=== PATIENT | female | born 1960 | race Caucasian/White ===

== ENCOUNTER 2016-09-02 06:26 | Inpatient (IN) | payer OTHER ==
[~2016-09-02] VITALS: Ht 160 cm; Wt 111.0 kg
--- NOTE | 2016-09-05 09:57 | HP ---
ADMIT: 09/02/2016 RM/LOC: 509 [facility] MR#: [id number] [address] [address] MARLYNMELANI FUENTES [address] [place] [address] History and Physical SEX: F AGE: 56 : 1960 DATE OF SERVICE: CHIEF COMPLAINT: Severe upper abdominal pain with nausea. CLINICAL HISTORY: The patient is a morbidly obese 56-year-old white female, admitted to [facility] after presenting to the emergency room on the morning of 09/02/2016, complaining of severe upper abdominal pain with nausea. The patient had, had the onset of pain late on the afternoon or early evening of , 09/01/2016. The pain persisted overnight and became much more intense. She notes that she was unable to sleep through most of the night because of the severe pain and nausea. She has been unable to eat or drink anything. She notes that she has had no vomiting, no melena, or hematemesis. She has not been having any recent dyspepsia or indigestion. She has had a previous cholecystectomy in 1998. The pain progressively got worse to the point that she could not deal with it anymore and for that reason, her brought her to the emergency room on the morning of 09/02/2016. She was evaluated in the ER by Dr. Ren, who did obtain a CT of her abdomen which showed acute inflammatory changes in the head of the pancreas, changes consistent with acute pancreatitis. This was consistent with her pancreatic enzymes being elevated with her lipase being at 739, when seen in the ER. She has no prior history of pancreatitis. As noted, she has had a previous cholecystectomy. She does not consume alcoholic beverages. She does have a history of hyperlipidemia and type 2 diabetes, and it is suspected that her hyperlipidemia is the primary cause of her acute pancreatitis, is admitted at this time for pain control and IV fluid rehydration. She was given morphine in the ER, which settled her pain down. She was also given Zofran in the ER, which helped for her nausea, but as noted, admitted for pain control and rehydration. PAST MEDICAL HISTORY: Recent Hospitalizations: She was last hospitalized at 1998, had a laparoscopic cholecystectomy at that time. She was hospitalized in 1991, in [place] for a lumbar laminectomy. She has had a previous tubal ligation following the of her last child. Other than for childbirth and these prior surgical procedures, she has had no other previous hospitalizations. PAST SURGICAL HISTORY: Operations as noted included laparoscopic cholecystectomy, lumbar laminectomy, and tubal ligation. CURRENT MEDICATIONS: Include. 1. Metformin 500 mg two tablets b.i.d. 2. Invokana 300 mg daily. 3. Dapu-jzu-kxpzpts Aleve p.r.n. pain. ALLERGIES: NONE KNOWN. MEDICAL ILLNESSES: Her medical illnesses include: 1. Type 2 diabetes. 2. Hyperlipidemia/hypertriglyceridemia. ADMIT: 09/02/2016 RM/LOC: 509 [facility] MR#: [id number] [address] [place] [id number] MELANI CLINE [address] [place] [address] History and Physical SEX: F AGE: 56 : 1960 3. Metabolic syndrome. 4. Morbid obesity. 5. Degenerative disk disease of lumbar spine with chronic low back pain. SOCIAL HISTORY: The patient is . She lives with her in the family home. She is a nonsmoker. She does not consume alcoholic beverages. She has no history of illicit drug use. 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 FAMILY HISTORY: Family history is negative. There is a strong history of diabetes in her family, but no other significant family history reported. REVIEW OF SYSTEMS: CONSTITUTIONAL: She has had no fever, no chills, has been feeling well up until the onset of the pain on the early evening of 09/01/2016. HEENT: No recent vision changes. No upper respiratory congestion. No problem swallowing. PULMONARY: No shortness of breath. No cough. She does note she fatigues easily due to her obesity and deconditioning. The patient does not exercise regularly. CARDIAC: No chest pain. No palpitations. No known coronary artery disease. Multiple cardiac risk factors including obesity, sedentary lifestyle, hyperlipidemia, and type 2 diabetes. GASTROINTESTINAL: As noted in the HPI, severe pain and nausea, but no vomiting, no melena or hematemesis, does not usually have much trouble with heartburn or indigestion, has had no recent change in bowel habitus. Last bowel movement was on 09/01/2016. GENITOURINARY: No voiding symptoms. The patient is postmenopausal. MUSCULOSKELETAL: History of degenerative disk disease, chronic low back pain. No other significant bone or joint pain. NEUROLOGIC: No history of strokes, seizures, or TIAs. No history of neuropathy. No unusual headaches. No lightheadedness, dizziness, or syncope. ENDOCRINE: She is a type 2 diabetic, does not monitor her sugars closely, has not been adhering to her diabetic diet. PHYSICAL EXAMINATION: VITAL SIGNS: On admission, temperature is a 100, pulse 88, respirations 18, blood pressure 130/85, O2 saturation 93%. GENERAL: The patient is a morbidly obese 56-year-old female, who appears her stated age. She is in no acute distress. She is oriented x3. HEENT: Unremarkable. Ears clear. Nose and throat noninflamed. Oropharynx normal. Pupils are equal and reactive. Sclerae nonicteric. Conjunctivae noninflamed. NECK: Supple. Thyroid not enlarged. No cervical adenopathy. No neck vein distention. Her neck is quite short, thick, and obese. LUNGS: Today are noted to be clear. She is diminished in the bases. HEART: Has a regular rhythm. No murmurs. No lifts, thrills, or heaves. BREASTS: Were not examined. ABDOMEN: Tender. She is quite tender in the epigastrium and upper abdomen. ADMIT: 09/02/2016 RM/LOC: 509 [facility] MR#: [id number] [facility] [id number] [address] [address] MELANI CLINE[address] [place] [address] History and Physical SEX: F AGE: 56 : 1960 Bowel sounds are normoactive. She does have a small umbilical hernia. Abdominal exam is somewhat limited by her abdominal obesity, but I see no guarding or rigidity. No peritoneal signs. Bowel sounds are present, but are hypoactive. PELVIC: Not performed. EXTREMITIES: Normal to gross exam. She does have 1+ pedal and ankle edema, some obesity related lymphedema of the lower extremities. No calf tenderness. No signs of thrombophlebitis. NEUROLOGICAL: She is intact with no focal deficit. Her balance is normal. Gait is normal. No evidence of diabetic neuropathy. Sensation is intact. INTEGUMENT: No rashes or skin breakdown. No diabetic foot or leg ulcerations. LABORATORY DATA: Her pre-admission laboratory work included [place] [address], hemoglobin 16.2, hematocrit 44.6. Her sodium is 131, potassium is elevated at 6.3. Her blood sugar was noted to be 279. Her procalcitonin is normal at 0.08, hemoglobin A1c is elevated at 7.6, lipase is 739, cholesterol is elevated at 373, triglycerides are 3768. IMAGING: Chest x-ray showed no acute infiltrates. Lung jung were clear. EKG is unremarkable with sinus tachycardia. CT scan of the abdomen showed significant changes of acute pancreatitis. ADMITTING DIAGNOSES: 1. Severe upper abdominal/epigastric abdominal pain. 2. Acute pancreatitis. 3. Morbid obesity. 4. Type 2 diabetes with history of poor control. 5. Hyperlipidemia. 6. Hyperkalemia. 7. Degenerative disk disease of the lumbosacral spine. 8. Chronic low back pain. It is my impression on admission that causes of her acute pancreatitis is her hypertriglyceridemia. PLAN: Plan is to admit the patient. Place her at bowel rest. Rehydrate with IV fluids. We will give a 2 L of fluid bolus. 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 We will place her on sliding scale insulin for management of her diabetes at this time. Leopoldo Amador MD/ carlyn JOB #: [id number] CC: Leopoldo Amador, Attending Physician Leopoldo Amador, Family Physician
[2016-09-07] MEDS ORDERED: GLUCOPHAGE-DPS500 MG PO (10:20)
[2016-09-07] MEDS ORDERED: INVOKANA300 MG PO (10:20)
[2016-09-07] MEDS ORDERED: MAALOX DPS30 ML PO (10:21)
[2016-09-07] MEDS ORDERED: CRESTOR20 MG PO (10:21)
[2016-09-07] MEDS ORDERED: MICRO-K DPS10 MEQ PO (10:21)
[2016-09-07] MEDS ORDERED: TYLENOL DPS325 MG PO (10:21)
[2016-09-07] MEDS ORDERED: PROTONIX40 MG PO (10:21)
[2016-09-07] MEDS ORDERED: TRICOR145 MG PO (10:22)
[2016-09-07] MEDS ORDERED: BACTRIM DS DPS1 TAB PO (10:22)
--- NOTE | 2016-09-09 18:56 | ER ---
ADMIT: 09/02/2016 RM/LOC: 509 [facility] MR#: [id number] [address] [address] MELANI CLINE [address] [place] [address] Emergency Room Report SEX: F AGE: 56 : 1960 DATE: 09/02/2016 ADDENDUM: A 56-year-old white female coming in with abdominal pain. She is diabetic, obese. She has hyperlipidemia. Chemistry machines went down while she was here; however, the CT did show pancreatitis and clinically, she acts that way as well. I spoke with Dr. Amador, he will admit and write orders. Issac Ren MD/ carlyn JOB #: [id number] CC: Leopoldo Amador MD, Attending Physician Leopoldo Amador MD, Family Physician
--- NOTE | 2016-10-12 13:37 | DS ---
ADMIT: 09/02/2016 RM/LOC: 509 [facility] MR#: [id number] [address] [address] MELANI CLINE [address] [place] [address] General Discharge Summary SEX: F AGE: 56 : 1960 ADMISSION DATE: 09/02/2016 DISCHARGE DATE: 09/06/2016 ADMITTING DIAGNOSIS: As per history and physical. FINAL DIAGNOSES: 1. Acute pancreatitis secondary to hypertriglyceridemia. 2. Morbid obesity. 3. Type 2 diabetes with hyperglycemia. 4. Urinary tract infection. 5. Degenerative disk disease of the lumbosacral spine. 6. Hyperkalemia. 7. Umbilical hernia. 8. Hyperlipidemia/hypertriglyceridemia. COMPLICATIONS: None. OPERATIONS: None. CLINICAL HISTORY: Mrs. Cline is a morbidly obese 56-year-old white female admitted to [facility] after presenting to the emergency room early on the morning of 09/02/2016. The patient was complaining of severe epigastric abdominal pain with nausea and vomiting. She has had the onset of abdominal pain the previous day. She had been awake most of the night because of her severe pain and nausea. She was unable to tolerate the pain any longer and presented to the ER on the morning of 09/02/2016. When seen in the ER, her CT of her abdomen showed changes of acute pancreatitis, and she had obvious pancreatitis by pancreatic enzyme assay. The patient was admitted with severe abdominal pain due to acute pancreatitis. She also on admission was noted to have dehydration and severe hyperglycemia. For further details of her clinical history as well as past medical history and pertinent findings on physical exam, please see dictated history and physical. LABORATORY AND X-RAY SUMMARY FROM THIS ADMISSION: For complete details of the lab, please see cumulative laboratory summary included in the chart. Brief synopsis of lab; her initial CBC showed a white count of 13,700, hemoglobin on admission was 16.2, and hematocrit 44.6. On her second hospital day, white count was 14,700 and hemoglobin 14.7. CBCs were monitored daily, and at discharge, her white count was 11,800, hemoglobin 14, and hematocrit 41.4. On admission, her urinalysis showed negative nitrites, trace of leukocyte esterase, and 5 wbc's per high-power field. UA on 09/06/2016 showed 3+ leukocyte esterase, 30 wbc's per high-power field, and changes consistent with a urinary tract infection. Chemistry studies were monitored serially because of her dehydration and hyperkalemia on admission. On admission, her sodium was 131 and potassium was 6.3. Her BUN was 12 with a creatinine at 0.5. Her blood sugar on admission was 279. On admission, her lipase was elevated at 739. Her albumin was low at 2.9. LFTs were normal except for elevation of her AST at 103. On her second hospital day, lipase was already coming back down, sodium was 140, potassium 3.6, BUN was 8 with a creatinine of 0.5. At ADMIT: 09/02/2016 RM/LOC: 509 [facility] MR#: [id number] [address] [address] MELANI CLINE [facility] [place] [address] General Discharge Summary SEX: F AGE: 56 : 1960 discharge, her sodium was 138, potassium 3.5, BUN 6, and creatinine 0.4. Fingerstick blood sugars were monitored q.i.d. because of her type 2 diabetes with history of poor control. Blood sugars ranged from a low of 129 to a high of 289, which was on admission. Her hemoglobin A1c was elevated at 7.6. Lipids done during this hospitalization were markedly abnormal with a cholesterol of 373 and triglycerides of 3768. Her HDL was low at 27. Blood cultures drawn on admission showed no growth. Urine cultures showed multiple organisms and felt to be vaginal contamination. X-ray studies included the CT of her abdomen and pelvis done in the ER, which showed inflammatory changes involving the head of the pancreas with no evidence of abscess or pseudocyst. The patient's CT showed that she has had previous cholecystectomy. She did have a small periumbilical hernia. Chest x-ray done during this hospitalization was unremarkable. Subsequent chest x-ray showed no evidence of pneumonia. Her EKG showed sinus rhythm with poor R-wave progression. HOSPITAL COURSE: The patient was admitted with acute pancreatitis. 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 Nausea was controlled with IV Zofran and IV Phenergan. Her hospital course was one of steady progressive improvement over the 4 days of her hospital stay. Blood sugars remained well controlled. Her abdominal pain settled down. She did develop a urinary tract infection, which we treated at discharge. She did have some side effects from morphine, so ultimately, she was switched to Dilaudid for pain control. She did spike a fever during the hospital stay, but ultimately, this was felt to be related to the urinary tract infection, which we treated at discharge. She was dismissed to home on her fifth hospital day, 09/06/2016. MEDICATIONS AT DISMISSAL: Included: 1. Micro-K 10 mEq one daily. 2. Protonix 40 mg daily. 3. Maalox p.r.n. indigestion. 4. Tylenol 650 mg q.4 hours p.r.n. minor discomfort. 5. Metformin 500 mg 2 tablets b.i.d. ADMIT: 09/02/2016 RM/LOC: 509 [facility] MR#: [id number] [facility] [address] [place] [address] MELANI CLINE [address] [place] [address] General Discharge Summary SEX: F AGE: 56 : 1960 6. Invokana 300 mg daily. 7. Crestor 20 mg daily. 8. TriCor 145 mg daily. 9. Bactrim DS 1 b.i.d. for 10 days for her urinary tract infection. FOLLOWUP: She is to follow up in our office in 7 to 10 days. If she has recurrent severe abdominal pain or nausea, she is to let us know. CONDITION AT DISCHARGE: Improved. PROGNOSIS: Somewhat guarded in view of her morbid obesity and previous difficulty with noncompliance. Leopoldo Amador MD/ carlyn JOB #: [id number] CC: Leopoldo Amador MD, Attending Physician Leopoldo Amador MD, Family Physician
== END 2016-09-06 11:55 | disposition home or self-care (01) | DRG 439 ==
LOC: ER 06:26 → 5MS 10:25
PROVIDERS: ADMIT Family Medicine
DX: K85.90 Acute pancreatitis without necrosis or infection, unspecified (principal); Z68.41 Body mass index [BMI] 40.0-44.9, adult; E11.65 Type 2 diabetes mellitus with hyperglycemia; N39.0 Urinary tract infection, site not specified; E66.01 Morbid (severe) obesity due to excess calories; M51.36 Other intervertebral disc degeneration, lumbar region; E87.5 Hyperkalemia; K42.9 Umbilical hernia without obstruction or gangrene; E78.1 Pure hyperglyceridemia; E78.5 Hyperlipidemia, unspecified; Z79.84 Long term (current) use of oral hypoglycemic drugs